=== PATIENT | male | born 1995 | race Hispanic/Latino ===

== ENCOUNTER 2022-11-20 20:49 | Emergency (ER) | payer OTHER ==
[~2022-11-20] VITALS: Ht 175.3 cm; Wt 95.2 kg
[2022-11-20 22:20] VITALS: BP 122/72
== END 2022-11-20 22:20 | disposition home or self-care (01) ==
LOC: ED 20:49
DX: S70.11XA Contusion of right thigh, initial encounter (principal); W50.0XXA Accidental hit or strike by another person, initial encounter; Y93.66 Activity, soccer; Z87.81 Personal history of (healed) traumatic fracture
CPT/HCPCS: 73552; 73560; 99283-25

== ENCOUNTER 2022-11-22 08:39 | Emergency (ER) | payer OTHER ==
[~2022-11-22] VITALS: Ht 175.3 cm; Wt 95.2 kg
--- OUTSIDE RECORDS SUMMARY | 2022-11-22 08:42 | XMS ---
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 Daniel has no Care Guidelines for this patient. Zohreh VISIT COUNT (12 MO.) [facility] NOTE: Visits indicate total known visits. ED/[facility] VISIT TRACKING (12 MO.) [facility] [place] [facility] COMPLAINT: - EXTREMITY PAIN/INJURY 11/20/2022 20:51 [facility] [place] TYPE: Emergency COMPLAINT: - RT LEG INJURY INPATIENT VISIT TRACKING (12 MO.) No inpatient visits to display in this time frame [email or web address]
[2022-11-22] MEDS ORDERED: THERA-D50 MCG PO (08:50)
[2022-11-22] MEDS ORDERED: ALL DAY ALLERGY10 M3 PO (08:50)
[2022-11-22] MEDS ORDERED: NASACORT10.8 ML NAS (08:51)
[2022-11-22 09:19] VITALS: BP 140/62
== END 2022-11-22 09:22 | disposition home or self-care (01) ==
LOC: ED 08:39
DX: S70.11XD Contusion of right thigh, subsequent encounter (principal); X58.XXXD Exposure to other specified factors, subsequent encounter
CPT/HCPCS: A9270; J1885